=== PATIENT | male | born 1965 | race Caucasian/White ===

== ENCOUNTER 2021-01-12 17:46 | Inpatient (IN) ==
[2021-01-12 18:32] LABS: ABG ALLEN TEST POS; ABG BASE EXCESS 3.5 mmol/L (-2.0-2.0); ABG HCO3 28.5 mmol/L (22-26)
--- NOTE | 2021-01-12 18:40 | DR.URIAD ---
HPI Time Seen Time Seen by Provider: 01/12/21 18:38 PCP Primary Care Physician: bola Complaint Chief Complaint Doctors Comments: pos covid x 1.5 week. worsening SOB. n/v. Chief Complaint:: tested positive last at [facility]. does not have a copy of the test result. he was coughing and got a rx for perrles and did not get it filled because of the cost. he keeps saying that the office did not give him any treatment. he states that he has nausea vomiting and feels dehydrated and dizzy COVID-19 Coronavirus risk:travel/contact w/high risk person: Yes Has patient experienced Coronavirus symptoms: Yes Coronavirus symptoms experienced: Coughing and Shortness of Breath Source History Provided: Patient Mode of Arrival Mode of Arrival: Ambulatory Timing Onset of Chief Complaint: 01/08/21 Quality Shortness of Breath: Mild PMH PMH Past Medical History: Yes Past Medical History Comment: cancer lymphoma Past Surgical History: Yes Surgical History: Ortho Surgery Past Surgical History Comment: back Family History History of Family Medical Conditions: Yes Family Medical History: Cancer Social History Type of Tobacco Use: Cigarettes Alcohol Use: None Do you use any recreational Drugs:: No Lives With: Alone Lives Where: Home Travel Risk Coronavirus risk:travel/contact w/high risk person: Yes Has patient experienced Coronavirus symptoms: Yes Coronavirus symptoms experienced: Coughing and Shortness of Breath Infectious screening In the last 2 months have you had wt loss of >10#?: NO Have you had fever, night sweats or hemotysis?: No Have you traveled outside the country in the last 6 months?: No Isolation: Droplet ROS Review of Systems Constitutional: See HPI ENTM: No Symptoms Reported Respiratoy: See HPI Cardiovascular: See HPI Gastrointestinal/Abdominal: See HPI Genitourinary: No Symptoms Reported Neurological: No Symptoms Reported Musculoskeletal: No Symptoms Reported Integumentary: No Symptoms Reported All Other Systems: Reviewed and Negative PE Vital Signs Vitals: Temperature 98.9 F Pulse Rate 84 Respiratory Rate 21 Blood Pressure 131/81 O2 Sat by Pulse Oximetry 91 General General Appearance: Alert, Anxious and In Distress Head Head Exam: Normal Inspection and Atraumatic Eyes Eye exam: Normal Appearance and PERRL ENT ENT Exam: Normal Exam Nose Exam: Normal Nose Exam; negative Sinus Tenderness Mouth Exam: Normal Inspection; negative Drooling Neck Neck Exam: Normal Inspection and Full ROM Respiratory Respiratory Exam: Normal Lung Sounds Bilat; negative Accessory Muscle Use Cardiovascular Cardiovascular Exam: Regular Rate and Normal Heart Sounds Abdominal Exam Abdominal Exam: Normal Inspection Extremeties Extremities Exam: Normal Inspection and Full ROM Back Back Exam: Normal Inspection and Full ROM Neurologic Neurological Exam: Alert and Oriented X3 Skin Skin Exam: Warm, Dry and Intact ROR Labs Reviewed Laboratory Results Reviewed?: Yes Result Diagrams: 01/12/21 19:07 01/12/21 19:07 Laboratory: WBC 4.5 X10^3/uL (3.6-10.0) 01/12/21 19:07 RBC 4.39 X10^6/uL (4.7-6.0) L 01/12/21 19:07 Hgb 13.9 g/dL (13.5-18.0) 01/12/21 19:07 Hct 40.6 % (42.0-54.0) L 01/12/21 19:07 MCV 92.3 fL (80.0-100.0) 01/12/21 19:07 MCH 31.6 pg (27.0-34.0) 01/12/21 19:07 MCHC 34.2 g/dL (33.0-35.0) 01/12/21 19:07 RDW 13.7 % (11.6-16.5) 01/12/21 19:07 Plt Count 170 X10^3/uL (150.0-450.0) 01/12/21 19:07 MPV 8.4 fL (7.4-11.0) 01/12/21 19:07 Neut % (Auto) 84.1 % (42.0-75.0) H 01/12/21 19:07 Lymph % (Auto) 5.2 % (21.0-51.0) L 01/12/21 19:07 [place] % (Auto) 10.2 % (0.0-13.0) 01/12/21 19:07 Eos % (Auto) 0.0 % (0.9-2.9) L 01/12/21 19:07 Baso % (Auto) 0.5 % (0.2-1.0) 01/12/21 19:07 Neut # (Auto) 3.8 x10^3/uL (2.2-4.8) 01/12/21 19:07 Lymph # (Auto) 0.2 X10^3/uL (1.3-2.9) L 01/12/21 19:07 [place] # (Auto) 0.5 x10^3/uL (0.3-0.8) 01/12/21 19:07 Eos # (Auto) 0.0 x10^3/uL (0.0-0.2) 01/12/21 19:07 Baso # (Auto) 0.0 X10^3/uL (0.0-0.1) 01/12/21 19:07 Absolute Nucleated RBC 0.2 /100WBC 01/12/21 19:07 D-Dimer 0.82 ug/ml (0.0-0.57) H* 01/12/21 19:07 Sample Site Rrad 01/12/21 18:24 ABG pH 7.420 (7.35-7.45) 01/12/21 18:24 ABG pCO2 44.0 mmHg (35.0-45.0) 01/12/21 18:24 ABG pO2 42.0 mmHg (80.0-100.0) L* 01/12/21 18:24 ABG HCO3 28.5 mmol/L (22-26) H 01/12/21 18:24 ABG O2 Saturation 79.0 % (90-100) L* 01/12/21 18:24 ABG Base Excess 3.5 mmol/L (-2.0-2.0) H 01/12/21 18:24 Lopez Test Pos 01/12/21 18:24 A-a Gradient 53.0 mmHg 01/12/21 18:24 FiO2 21.0 01/12/21 18:24 Blood Gas Comments Pt erica well elj 01/12/21 18:24 Sodium 135 mmol/L (136-145) L 01/12/21 19:07 Corrected Sodium TNP 01/12/21 19:07 Potassium 4.2 mmol/L (3.5-5.1) 01/12/21 19:07 Chloride 97 mmol/L (98-107) L 01/12/21 19:07 Carbon Dioxide 30.5 mmol/L (21-32) 01/12/21 19:07 BUN 11 mg/dL (7-18) 01/12/21 19:07 Creatinine 0.78 mg/dL (0.70-1.30) 01/12/21 19:07 Est GFR (MDRD) Af Amer > 60 (>60) 01/12/21 19:07 Est GFR (MDRD) Non-Af > 60 (>60) 01/12/21 19:07 Glucose 110 mg/dL (65-99) H 01/12/21 19:07 Calcium 8.7 mg/dL (8.5-10.1) 01/12/21 19:07 Corrected Calcium 9.6 mg/dL (8.5-10.1) 01/12/21 19:07 Ferritin 1511 ng/mL (26-388) H 01/12/21 19:07 Total Bilirubin 0.30 mg/dL (0.2-1.0) 01/12/21 19:07 AST 64 Units/L (15-37) H 01/12/21 19:07 ALT 42 Units/L (12-78) 01/12/21 19:07 Alkaline Phosphatase 68 Units/L (46-116) 01/12/21 19:07 C-Reactive Protein 168.30 mg/L (0-3.0) H 01/12/21 19:07 B-Natriuretic Peptide 68.2 pg/mL (0-79) 01/12/21 19:07 Total Protein 7.1 g/dL (6.4-8.2) 01/12/21 19:07 Albumin 2.9 g/dL (3.4-5.0) L 01/12/21 19:07 Globulin 4.2 g/dL (2.5-4.5) 01/12/21 19:07 Albumin/Globulin Ratio 0.7 Ratio (1.1-2.1) L 01/12/21 19:07 SARS-CoV-2 (PCR) Positive (NEGATIVE) A 01/12/21 19:28 Influenza Type A (PCR) Negative (NEGATIVE) 01/12/21 19: Influenza Type B (PCR) Negative (NEGATIVE) 01/12/21 19:28 RSV (PCR) Negative (NEGATIVE) 01/12/21 19:28 XRAY X-ray Results: cxr shows infiltrate. CTA neg for PE. pos for covid pna. Opioid Opioid Risk Tool Age (Félix box if 16-45): No History of Preadolescent Sexual Abuse: No Total: 0 Total Score Risk Category: Low Risk Copyright: Stephen GIBBONS predicting aberrant behaviors Procedures Procedure Comments Procedures: requiring O2 x 6L. Diagnosis Discharge Problem: COVID, Acute respiratory distress ADDITIONAL NOTES Additional Notes Additional Notes: admit to dr white
--- NOTE | 2021-01-12 19:21 | RAD ---
CHEST, 1 VIEWHISTORY: states that he has nausea vomiting and feels dehydrated and dizzyStudy: Single view of the chest.Comparison:NoneFindings:The cardiomediastinal silhouette is normal.Multifocal airspace opacities particular in the right upper lobe. Osseous structures demonstrate no acute abnormality.IMPRESSION:1. Multifocal right-sided pneumonia.Electronically signed by: ANDRES CURRY (Jan 12, 2021 19:19:05)
[2021-01-12 19:23] LABS: BASOPHILS % (AUTO) 0.5 % (0.2-1.0); HEMATOCRIT 40.6 % (42.0-54.0); HEMOGLOBIN 13.9 g/dL (13.5-18.0); LYMPHOCYTES # (AUTO) 0.2 X10^3/uL (1.3-2.9); LYMPHOCYTES % (AUTO) 5.2 % (21.0-51.0); MEAN CORPUSCULAR HEMOGLOBIN 31.6 pg (27.0-34.0); MEAN CORPUSCULAR HGB CONC 34.2 g/dL (33.0-35.0); MEAN CORPUSCULAR VOLUME 92.3 fL (80.0-100.0); MEAN PLATELET VOLUME 8.4 fL (7.4-11.0); MONOCYTES # (AUTO) 0.5 x10^3/uL (0.3-0.8); MONOCYTES % (AUTO) 10.2 % (0.0-13.0); NEUTROPHILS # (AUTO) 3.8 x10^3/uL (2.2-4.8); NEUTROPHILS % (AUTO) 84.1 % (42.0-75.0); PLATELET COUNT 170 X10^3/uL (150.0-450.0); RED BLOOD COUNT 4.39 X10^6/uL (4.7-6.0); RED CELL DISTRIBUTION WIDTH 13.7 % (11.6-16.5); WHITE BLOOD COUNT 4.5 X10^3/uL (3.6-10.0)
[2021-01-12] MEDS ORDERED: NS 1000 ML 1,000 ML ONE ×2 (19:34→22:37)
[2021-01-12 19:35] LABS: ALANINE AMINOTRANSFERASE 42 Units/L (12-78); ALBUMIN 2.9 g/dL (3.4-5.0); ALKALINE PHOSPHATASE 68 Units/L (46-116); ASPARTATE AMINO TRANSFERASE 64 Units/L (15-37); BLOOD UREA NITROGEN 11 mg/dL (7-18); CALCIUM 8.7 mg/dL (8.5-10.1); CARBON DIOXIDE 30.5 mmol/L (21-32); CHLORIDE 97 mmol/L (98-107); COR CA(FOR HYPOALB) 9.6 mg/dL (8.5-10.1); CREATININE 0.78 mg/dL (0.70-1.30); SODIUM 135 mmol/L (136-145); TOTAL PROTEIN 7.1 g/dL (6.4-8.2); eGFR NON BLACK RACES > 60 (>60)
[2021-01-12] MEDS ORDERED: NS 100 ML IV 100 ML ONE (20:46)
[2021-01-12] MEDS ORDERED: NS 1000 ML 1,000 ML IV ONE (20:55)
--- NOTE | 2021-01-12 21:28 | CT ---
HISTORYSOB, COUGH, ELEVATED DDIMER, COVID +STUDYCTA CHESTCOMPARISONChest radiograph, January 12, 2021TECHNIQUEAxial CT images of the chest were obtained after the administration of 75 mL Omnipaque 350 IV contrast utilizing a CTA protocol. 3D MIPS were performed and reviewed for further evaluation.Radiation dose: 485.60 mGy-cm total DLPFINDINGSNo significant pericardial effusion.No mediastinal or hilar lymphadenopathy.Aorta is normal in caliber without dissection.Pulmonary arteries are normal in caliber without filling defects to suggest a pulmonary embolus.Mild diffuse bronchial wall thickening.Thyroid appears normal.No pleural effusion.Bilateral ground-glass airspace opacities scattered throughout both lungs; right greater than left.Mild centrilobular emphysema.No pneumothorax.No concerning lung parenchymal lesion identified.Imaged portion of the upper abdomen is unremarkable.No acute osseous abnormality.Multilevel mild degenerative disc disease without vertebral body height loss.IMPRESSION1. Bilateral ground-glass airspace opacities scattered throughout both lung; right greater than left. Finding is consistent with patient's known history of a COVID-19 respiratory infection.2. No pulmonary embolus identified.3. Mild centrilobular emphysema.Electronically signed by: Santi Paniagua (Jan 12, 2021 21:26:52)
[2021-01-12] MEDS ORDERED: TYLENOL 500 MG TAB EXTRA STRENGTH PO ONE (21:29)
[2021-01-12] MEDS ORDERED: LOVENOX INJ 80 MG SYR SC ONE ×2 (21:29→21:36)
[2021-01-12] MEDS ORDERED: DECADRON INJ IVP ONE (21:31)
[2021-01-12] MEDS ORDERED: REMDESIVIR 200 MG in NS 250 ML IV 250 ML IV ONE (21:36)
[2021-01-12] MEDS ORDERED: ZOFRAN INJ 4 MG VIAL ONE (21:36)
[2021-01-12] MEDS ORDERED: DECADRON INJ ONE (21:36)
[2021-01-12] MEDS: TYLENOL 500 MG TAB EXTRA STRENGTH PO PRN (21:47)
[2021-01-12] MEDS: ZOFRAN INJ 4 MG VIAL IVP PRN (21:47)
[2021-01-12] MEDS ORDERED: REMDESIVIR IV ONE (22:37)
[2021-01-12] MEDS ORDERED: NS 250 ML IV 250 ML IV ONE (22:37)
[2021-01-12] MEDS: NS 1000 ML 1,000 ML IV SCH (22:50)
[2021-01-12] MEDS: PULMICORT NEB TX 0.5 MG NEB SCH (23:01)
[2021-01-12] MEDS: BROVANA IN SCH (23:01)
[2021-01-13] MEDS: PEPCID TAB 40 MG PO SCH ×3 (00:19→20:16)
[2021-01-13] MEDS: VIBRAMYCIN PO SCH ×3 (00:19→20:17)
[2021-01-13] MEDS: ZOSYN VIAL 3.375 GRAMS 3.375 G in NS 50 ML IV + SPIKE MINIBAG* 50 ML IV SCH ×2 (00:19→05:13)
[2021-01-13 01:23] VITALS: BMI 22.7
[2021-01-13] MEDS: ASCORBIC ACID INJ MULTI-DOSE VIAL 1,500 MG in NS 100 ML IV 100 ML IV SCH ×4 (02:17→20:15)
[2021-01-13 05:44] LABS: BASOPHILS % (AUTO) 0.2 % (0.2-1.0); HEMATOCRIT 38.5 % (42.0-54.0); HEMOGLOBIN 13.2 g/dL (13.5-18.0); LYMPHOCYTES # (AUTO) 0.3 X10^3/uL (1.3-2.9); LYMPHOCYTES % (AUTO) 6.9 % (21.0-51.0); MEAN CORPUSCULAR HEMOGLOBIN 31.3 pg (27.0-34.0); MEAN CORPUSCULAR HGB CONC 34.2 g/dL (33.0-35.0); MEAN CORPUSCULAR VOLUME 91.4 fL (80.0-100.0); MEAN PLATELET VOLUME 9.1 fL (7.4-11.0); MONOCYTES # (AUTO) 0.3 x10^3/uL (0.3-0.8); NEUTROPHILS # (AUTO) 3.1 x10^3/uL (2.2-4.8); NEUTROPHILS % (AUTO) 83.9 % (42.0-75.0); PLATELET COUNT 178 X10^3/uL (150.0-450.0); RED BLOOD COUNT 4.21 X10^6/uL (4.7-6.0); WHITE BLOOD COUNT 3.6 X10^3/uL (3.6-10.0)
[2021-01-13 05:50] LABS: ALANINE AMINOTRANSFERASE 39 Units/L (12-78); ALBUMIN 2.5 g/dL (3.4-5.0); ALKALINE PHOSPHATASE 62 Units/L (46-116); ASPARTATE AMINO TRANSFERASE 59 Units/L (15-37); BLOOD UREA NITROGEN 12 mg/dL (7-18); CARBON DIOXIDE 27.2 mmol/L (21-32); CHLORIDE 99 mmol/L (98-107); COR CA(FOR HYPOALB) 9.2 mg/dL (8.5-10.1); COR NA(FOR HYPERGLY) 137 mmol/L (136-145); CREATININE 0.69 mg/dL (0.70-1.30); SODIUM 135 mmol/L (136-145); TOTAL PROTEIN 6.5 g/dL (6.4-8.2); eGFR NON BLACK RACES > 60 (>60)
[2021-01-13] MEDS ORDERED: SOLU-Medrol 40 MG VIAL IVP SCH ×2 (06:00→14:00)
--- NOTE | 2021-01-13 06:19 | RAD ---
HISTORYCOVID, SOBSTUDYCHEST, 1 VIEWCOMPARISONChest radiograph and CTA chest from 1 day prior.TECHNIQUEAP view of the chestFINDINGSCardiac and mediastinal contours are within normal limits. Interval worsening airspace opacities particularly in the right upper and left lower lung. No definite pleural effusion or pneumothorax.IMPRESSIONInterval worsening of bilateral pneumonia.Electronically signed by: Tejinder Hyman (Jan 13, 2021 06:17:07)
[2021-01-13] MEDS: ZOFRAN INJ 4 MG VIAL IVP PRN (07:47)
[2021-01-13] MEDS ORDERED: VITAMIN A PO SCH (09:00)
[2021-01-13] MEDS ORDERED: VITAMIN D (1.25MG) PO SCH (09:00)
[2021-01-13] MEDS: BROVANA IN SCH ×2 (09:30→21:45)
[2021-01-13] MEDS: PULMICORT NEB TX 0.5 MG NEB SCH ×2 (09:30→21:45)
[2021-01-13] MEDS: TRICOR TAB 160 MG PO SCH (09:58)
[2021-01-13] MEDS: ACTOS PO SCH (09:59)
[2021-01-13] MEDS: ZINC SULFATE PO SCH ×2 (09:59→20:17)
[2021-01-13] MEDS: FLUVOXAMINE MALEATE PO SCH ×2 (09:59→20:16)
[2021-01-13] MEDS: TESSALON PERLES PO PRN ×2 (10:00→20:16)
[2021-01-13] MEDS: NEURONTIN CAP 300 MG PO SCH ×3 (10:00→21:14)
[2021-01-13] MEDS: SUBOXONE TAB SL PRN (14:30)
[2021-01-13] MEDS: TYLENOL 500 MG TAB EXTRA STRENGTH PO PRN (20:17)
[2021-01-13] MEDS: REMDESIVIR 100 MG in NS 250 ML IV 250 ML IV SCH (20:49)
[2021-01-13] MEDS: SOLU-Medrol 125 MG VIAL IVP SCH (21:14)
[2021-01-13] MEDS: NS 1000 ML 1,000 ML IV SCH (21:57)
[2021-01-14] MEDS: ASCORBIC ACID INJ MULTI-DOSE VIAL 1,500 MG in NS 100 ML IV 100 ML IV SCH ×3 (02:23→14:10)
[2021-01-14] MEDS: SOLU-Medrol 125 MG VIAL IVP SCH ×3 (05:04→21:20)
[2021-01-14] MEDS: TYLENOL 500 MG TAB EXTRA STRENGTH PO PRN ×2 (05:04→20:05)
[2021-01-14] MEDS: NEURONTIN CAP 300 MG PO SCH ×3 (05:04→21:20)
[2021-01-14] MEDS: TESSALON PERLES PO PRN ×2 (05:04→20:03)
[2021-01-14 05:25] LABS: BASOPHILS % (AUTO) 0.1 % (0.2-1.0); HEMATOCRIT 36.6 % (42.0-54.0); HEMOGLOBIN 12.7 g/dL (13.5-18.0); LYMPHOCYTES # (AUTO) 0.3 X10^3/uL (1.3-2.9); MEAN CORPUSCULAR HEMOGLOBIN 31.7 pg (27.0-34.0); MEAN CORPUSCULAR HGB CONC 34.7 g/dL (33.0-35.0); MEAN CORPUSCULAR VOLUME 91.5 fL (80.0-100.0); MEAN PLATELET VOLUME 8.8 fL (7.4-11.0); MONOCYTES # (AUTO) 0.7 x10^3/uL (0.3-0.8); NEUTROPHILS # (AUTO) 6.5 x10^3/uL (2.2-4.8); NEUTROPHILS % (AUTO) 86.9 % (42.0-75.0); PLATELET COUNT 218 X10^3/uL (150.0-450.0); WHITE BLOOD COUNT 7.4 X10^3/uL (3.6-10.0)
[2021-01-14 05:40] LABS: ALANINE AMINOTRANSFERASE 37 Units/L (12-78); ALBUMIN 2.4 g/dL (3.4-5.0); ALKALINE PHOSPHATASE 55 Units/L (46-116); ASPARTATE AMINO TRANSFERASE 51 Units/L (15-37); BLOOD UREA NITROGEN 17 mg/dL (7-18); CALCIUM 8.1 mg/dL (8.5-10.1); CARBON DIOXIDE 28.7 mmol/L (21-32); CHLORIDE 102 mmol/L (98-107); COR CA(FOR HYPOALB) 9.4 mg/dL (8.5-10.1); COR NA(FOR HYPERGLY) 139 mmol/L (136-145); CREATININE 0.85 mg/dL (0.70-1.30); SODIUM 137 mmol/L (136-145); TOTAL PROTEIN 6.2 g/dL (6.4-8.2); eGFR NON BLACK RACES > 60 (>60)
[2021-01-14] MEDS: PULMICORT NEB TX 0.5 MG NEB SCH ×2 (09:50→21:49)
[2021-01-14] MEDS: BROVANA IN SCH ×2 (09:50→21:49)
[2021-01-14] MEDS: ACTOS PO SCH (09:52)
[2021-01-14] MEDS: FLUVOXAMINE MALEATE PO SCH ×2 (09:52→20:03)
[2021-01-14] MEDS: LOVENOX INJ 40 MG SYR SC SCH (09:52)
[2021-01-14] MEDS: TRICOR TAB 160 MG PO SCH (09:53)
[2021-01-14] MEDS: PEPCID TAB 40 MG PO SCH ×2 (09:53→20:04)
[2021-01-14] MEDS: SUBOXONE TAB SL PRN (09:54)
[2021-01-14] MEDS: VIBRAMYCIN PO SCH ×2 (09:54→20:03)
[2021-01-14] MEDS: VITAMIN A PO SCH (09:54)
[2021-01-14] MEDS: VITAMIN D3 125 mcg (5,000 UNITS) PO SCH (09:54)
[2021-01-14] MEDS: ZINC SULFATE PO SCH ×2 (09:55→20:02)
[2021-01-14] MEDS: GLUCOPHAGE XR 24-HR PO SCH ×2 (09:55→20:03)
[2021-01-14] MEDS: ZOFRAN INJ 4 MG VIAL IVP PRN ×2 (10:10→21:08)
[2021-01-14] MEDS: COLACE CAP 100 MG PO SCH (20:02)
[2021-01-14] MEDS: MILK OF MAGNESIA PO SCH (20:03)
[2021-01-14] MEDS: ASCORBIC ACID INJ MULTI-DOSE VIAL 1,500 MG in NS 50 ML IV 50 ML IV SCH (20:03)
[2021-01-14] MEDS: REMDESIVIR 100 MG in NS 250 ML IV 250 ML IV SCH (20:04)
[2021-01-15] MEDS: NS 1000 ML 1,000 ML IV SCH ×2 (02:40→21:41)
[2021-01-15] MEDS: ASCORBIC ACID INJ MULTI-DOSE VIAL 1,500 MG in NS 50 ML IV 50 ML IV SCH ×4 (02:40→21:39)
[2021-01-15 05:20] LABS: BASOPHILS % (AUTO) 0.1 % (0.2-1.0); HEMATOCRIT 39.3 % (42.0-54.0); HEMOGLOBIN 13.3 g/dL (13.5-18.0); LYMPHOCYTES # (AUTO) 0.3 X10^3/uL (1.3-2.9); LYMPHOCYTES % (AUTO) 2.7 % (21.0-51.0); MEAN CORPUSCULAR HGB CONC 33.7 g/dL (33.0-35.0); MEAN CORPUSCULAR VOLUME 91.9 fL (80.0-100.0); MEAN PLATELET VOLUME 9.1 fL (7.4-11.0); MONOCYTES # (AUTO) 0.9 x10^3/uL (0.3-0.8); MONOCYTES % (AUTO) 7.9 % (0.0-13.0); NEUTROPHILS # (AUTO) 10.4 x10^3/uL (2.2-4.8); NEUTROPHILS % (AUTO) 89.3 % (42.0-75.0); PLATELET COUNT 244 X10^3/uL (150.0-450.0); RED BLOOD COUNT 4.28 X10^6/uL (4.7-6.0); RED CELL DISTRIBUTION WIDTH 14.2 % (11.6-16.5); WHITE BLOOD COUNT 11.6 X10^3/uL (3.6-10.0)
[2021-01-15 05:31] LABS: ALANINE AMINOTRANSFERASE 39 Units/L (12-78); ALBUMIN 2.4 g/dL (3.4-5.0); ALKALINE PHOSPHATASE 67 Units/L (46-116); ASPARTATE AMINO TRANSFERASE 59 Units/L (15-37); BLOOD UREA NITROGEN 19 mg/dL (7-18); CALCIUM 8.1 mg/dL (8.5-10.1); CARBON DIOXIDE 29.3 mmol/L (21-32); CHLORIDE 103 mmol/L (98-107); COR CA(FOR HYPOALB) 9.4 mg/dL (8.5-10.1); COR NA(FOR HYPERGLY) 140 mmol/L (136-145); CREATININE 0.81 mg/dL (0.70-1.30); SODIUM 139 mmol/L (136-145); TOTAL PROTEIN 6.2 g/dL (6.4-8.2); eGFR NON BLACK RACES > 60 (>60)
[2021-01-15] MEDS: NEURONTIN CAP 300 MG PO SCH ×3 (05:36→21:39)
[2021-01-15] MEDS: SOLU-Medrol 125 MG VIAL IVP SCH ×3 (05:36→21:41)
[2021-01-15] MEDS: MILK OF MAGNESIA PO SCH ×2 (05:36→21:40)
[2021-01-15] MEDS: COLACE CAP 100 MG PO SCH ×2 (05:36→21:40)
[2021-01-15] MEDS: BROVANA IN SCH ×2 (08:25→21:22)
[2021-01-15] MEDS: PULMICORT NEB TX 0.5 MG NEB SCH ×2 (08:25→21:23)
[2021-01-15] MEDS ORDERED: CHLORASEPTIC SPRAY MT PRN (09:20)
[2021-01-15] MEDS: SUBOXONE TAB SL PRN (09:23)
[2021-01-15] MEDS: TESSALON PERLES PO PRN (09:23)
[2021-01-15] MEDS: ACTOS PO SCH (09:23)
[2021-01-15] MEDS: GLUCOPHAGE XR 24-HR PO SCH ×2 (09:24→21:39)
[2021-01-15] MEDS: FLUVOXAMINE MALEATE PO SCH ×2 (09:24→21:40)
[2021-01-15] MEDS: LOVENOX INJ 40 MG SYR SC SCH (09:24)
[2021-01-15] MEDS: PEPCID TAB 40 MG PO SCH ×2 (09:25→21:39)
[2021-01-15] MEDS: VIBRAMYCIN PO SCH ×2 (09:25→21:39)
[2021-01-15] MEDS: VITAMIN A PO SCH (09:25)
[2021-01-15] MEDS: TRICOR TAB 160 MG PO SCH (09:25)
[2021-01-15] MEDS: ZOFRAN INJ 4 MG VIAL IVP PRN (09:26)
[2021-01-15] MEDS: VITAMIN D3 125 mcg (5,000 UNITS) PO SCH (09:26)
[2021-01-15] MEDS: ZINC SULFATE PO SCH ×2 (09:26→21:39)
[2021-01-15] MEDS: COZAAR PO SCH (16:16)
[2021-01-15] MEDS: NICOTINE PATCH TD SCH (16:17)
[2021-01-15] MEDS ORDERED: KLONOPIN TAB 0.5 MG PO PRN (20:01)
[2021-01-15] MEDS: REMDESIVIR 100 MG in NS 250 ML IV 250 ML IV SCH (21:40)
[2021-01-16] MEDS: ASCORBIC ACID INJ MULTI-DOSE VIAL 1,500 MG in NS 50 ML IV 50 ML IV SCH ×2 (03:56→09:59)
[2021-01-16 05:26] LABS: BASOPHILS % (AUTO) 0 % (0.2-1.0); HEMATOCRIT 39.4 % (42.0-54.0); HEMOGLOBIN 13.3 g/dL (13.5-18.0); LYMPHOCYTES # (AUTO) 0.2 X10^3/uL (1.3-2.9); LYMPHOCYTES % (AUTO) 2.1 % (21.0-51.0); MEAN CORPUSCULAR HGB CONC 33.8 g/dL (33.0-35.0); MEAN PLATELET VOLUME 9.1 fL (7.4-11.0); MONOCYTES # (AUTO) 0.8 x10^3/uL (0.3-0.8); MONOCYTES % (AUTO) 7.2 % (0.0-13.0); NEUTROPHILS # (AUTO) 10.2 x10^3/uL (2.2-4.8); NEUTROPHILS % (AUTO) 90.7 % (42.0-75.0); PLATELET COUNT 243 X10^3/uL (150.0-450.0); RED BLOOD COUNT 4.28 X10^6/uL (4.7-6.0); RED CELL DISTRIBUTION WIDTH 14.1 % (11.6-16.5); WHITE BLOOD COUNT 11.3 X10^3/uL (3.6-10.0)
[2021-01-16 05:41] LABS: ALANINE AMINOTRANSFERASE 45 Units/L (12-78); ALBUMIN 2.2 g/dL (3.4-5.0); ALKALINE PHOSPHATASE 82 Units/L (46-116); ASPARTATE AMINO TRANSFERASE 57 Units/L (15-37); BLOOD UREA NITROGEN 21 mg/dL (7-18); CALCIUM 8.2 mg/dL (8.5-10.1); CARBON DIOXIDE 26.7 mmol/L (21-32); CHLORIDE 104 mmol/L (98-107); COR CA(FOR HYPOALB) 9.6 mg/dL (8.5-10.1); COR NA(FOR HYPERGLY) 142 mmol/L (136-145); SODIUM 141 mmol/L (136-145); TOTAL PROTEIN 5.9 g/dL (6.4-8.2); eGFR NON BLACK RACES > 60 (>60)
[2021-01-16] MEDS: NEURONTIN CAP 300 MG PO SCH (06:06)
[2021-01-16 06:08] LABS: PLATELET MORPHOLOGY COMMENT NORMAL (NORMAL)
[2021-01-16] MEDS: SOLU-Medrol 125 MG VIAL IVP SCH (06:09)
[2021-01-16] MEDS ORDERED: NITROSTAT ONE (07:27)
[2021-01-16] MEDS: NITROSTAT SL PRN ×3 (07:29→07:52)
[2021-01-16] MEDS ORDERED: MORPHINE SULFATE INJ 2 MG INJ ONE (08:02)
[2021-01-16] MEDS ORDERED: MORPHINE SULFATE INJ 2 MG INJ IVP ONE (08:06)
[2021-01-16 08:30] LABS: CKMB % 2.2 % (<4); CREATINE KINASE 45 Units/L (39-308); CREATINE KINASE MB < 1.0 ng/mL (0-4.0); TROPONIN I < 0.02 ng/mL (0-1.5)
[2021-01-16] MEDS ORDERED: SUBOXONE TAB SL SCH (09:00)
[2021-01-16] MEDS: ACTOS PO SCH (09:30)
[2021-01-16] MEDS: PULMICORT NEB TX 0.5 MG NEB SCH (09:46)
[2021-01-16] MEDS: BROVANA IN SCH (09:46)
[2021-01-16] MEDS: COLACE CAP 100 MG PO SCH (09:57)
[2021-01-16] MEDS: VIBRAMYCIN PO SCH (09:57)
[2021-01-16] MEDS: VITAMIN A PO SCH (09:57)
[2021-01-16] MEDS: TRICOR TAB 160 MG PO SCH (09:57)
[2021-01-16] MEDS: VITAMIN D3 125 mcg (5,000 UNITS) PO SCH (09:57)
[2021-01-16] MEDS: NICOTINE PATCH TD SCH (09:57)
[2021-01-16] MEDS: GLUCOPHAGE XR 24-HR PO SCH (09:58)
[2021-01-16] MEDS: LOVENOX INJ 40 MG SYR SC SCH (09:58)
[2021-01-16] MEDS: ZINC SULFATE PO SCH (09:58)
[2021-01-16] MEDS: PEPCID TAB 40 MG PO SCH (09:58)
[2021-01-16] MEDS: MILK OF MAGNESIA PO SCH (09:59)
[2021-01-16] MEDS: COZAAR PO SCH (09:59)
[2021-01-16] MEDS: FLUVOXAMINE MALEATE PO SCH (09:59)
[2021-01-16] MEDS ORDERED: ATIVAN INJ 2 MG VIAL ONE (10:47)
[2021-01-16] MEDS ORDERED: ATIVAN INJ 2 MG VIAL IVP ONE (11:35)
[2021-01-16 12:02] VITALS: BP 180/89
== END 2021-01-16 12:50 | disposition short-term general hospital (02) | DRG 177 ==
LOC: ER 17:46 → ICU 21:35
PROVIDERS: ADMIT Obstetrics & Gynecology Obstetrics; ATTEND Obstetrics & Gynecology Obstetrics
DX: R11.2 Nausea with vomiting, unspecified; R94.31 Abnormal electrocardiogram [ECG] [EKG]; R06.02 Shortness of breath; I11.9 Hypertensive heart disease without heart failure; U07.1 COVID-19; I21.29 ST elevation (STEMI) myocardial infarction involving other sites; R79.82 Elevated C-reactive protein (CRP); R26.89 Other abnormalities of gait and mobility; J12.82 Pneumonia due to coronavirus disease 2019; J44.9 Chronic obstructive pulmonary disease, unspecified; R79.89 Other specified abnormal findings of blood chemistry; R09.02 Hypoxemia